=== PATIENT | female | born 1985 | race African-American/Black ===

== ENCOUNTER 2021-02-12 02:16 | Emergency (ER) | payer OTHER ==
[~2021-02-12] VITALS: Ht 165.1 cm; Wt 79.4 kg
== END 2021-02-12 05:18 | disposition home or self-care (01) ==
LOC: ER 02:16
DX: S01.122A Laceration with foreign body of left eyelid and periocular area, initial encounter (principal); W18.09XA Striking against other object with subsequent fall, initial encounter; Y93.89 Activity, other specified; Y92.89 Other specified places as the place of occurrence of the external cause; Y99.8 Other external cause status
CPT/HCPCS: 70480; G0168